=== PATIENT | female | born 2000 | race Caucasian/White ===

== ENCOUNTER 2020-02-20 16:15 | Outpatient (CLI) | payer OTHER, SELFPAY ==
[2020-02-20 17:03] LABS: Beta HCG Quantitative < 2.39 mIU/ML
== END 2020-02-20 16:16 | disposition home or self-care (01) ==
PROVIDERS: PCP Pediatrics; Visit Provider Obstetrics & Gynecology
DX: Z30.019 Encounter for initial prescription of contraceptives, unspecified (principal)
CPT/HCPCS: 36415; 84702